=== PATIENT | female | born 1970 | race Caucasian/White ===

== ENCOUNTER 2018-02-23 08:32 | Outpatient (CLI) | payer BC | END 2018-02-23 08:33 | disposition home or self-care (01) | LOC: BICMAMMO 08:32 | PROVIDERS: ATTEND Obstetrics & Gynecology | DX: Z12.31 Encounter for screening mammogram for malignant neoplasm of breast (principal); Z80.3 Family history of malignant neoplasm of breast; R92.1 Mammographic calcification found on diagnostic imaging of breast | CPT/HCPCS: 77063; 77067 ==

== ENCOUNTER 2018-06-16 11:02 | Outpatient (CLI) | payer BC | END 2018-06-16 11:03 | disposition home or self-care (01) | LOC: DTY/OP 11:02 | PROVIDERS: ATTEND Surgery | DX: E11.9 Type 2 diabetes mellitus without complications (principal); I10 Essential (primary) hypertension | CPT/HCPCS: 97802 ==

== ENCOUNTER 2018-07-07 08:45 | Inpatient (IN) | payer BC ==
[2018-07-08] MEDS ORDERED: Bupivacaine/Epinephrine 0.25% 30 ML VIAL ONE (10:24)
[2018-07-08] MEDS ORDERED: Heparin 5,000 UNITS/ML VIAL ONE (10:50)
[2018-07-08] MEDS ORDERED: Midazolam HCl 2 mg/2 ml Vial ONE ×2 (10:50→11:09)
[2018-07-08] MEDS ORDERED: CEFAZOLIN/Water 2 GM/20 ML SYRINGE ONE (10:51)
[2018-07-08] MEDS ORDERED: Fentanyl 250 MCG/5 ML VIAL ONE (11:09)
[2018-07-08] MEDS ORDERED: Ondansetron HCl/PF 4 MG/2 ML Vial IVP PRN ×3 (12:26→16:14)
[2018-07-08] MEDS ORDERED: Promethazine HCl 25 MG/ML VIAL IM PRN ×3 (12:26→16:14)
[2018-07-08] MEDS ORDERED: Promethazine HCl 25 MG/ML VIAL SLOW IVP PRN (12:26)
--- NOTE | 2018-07-08 12:52 | OP ---
DATE OF PROCEDURE: 07/08/2018 PREOPERATIVE DIAGNOSES: Morbid obesity with a BMI of 36, diabetes mellitus type 2, hypertension. POSTOPERATIVE DIAGNOSES: Morbid obesity with a BMI of 36, diabetes mellitus type 2, hypertension. PROCEDURE: 1. Laparoscopic sleeve gastrectomy Onley staple line reinforcements and 38 Filipino bougie. 2. Laparoscopic paraesophageal hiatal hernia repair without fundoplication or mesh. SURGEON: Malachi Mann M.D. ANESTHESIA: General. ESTIMATED BLOOD LOSS: 50 mL. COMPLICATIONS: None. SPECIMEN: Stomach. FINDINGS: Hiatal hernia. TECHNIQUE: The patient was taken to the operating room and placed supine on the table. After genera l anesthetic was obtained, the arms and legs were double strapped to bariatric table. The abdomen is prepped and draped in a sterile fashion. Left subcostal 5-mm Optiview trocar was placed in the usua l fashion and high-flow pneumoperitoneum was obtained. Left and right abdominal 12-mm ports as well as a right subcostal 5 mm port were placed under direct visualization. Jammie retractor was broug ht in through a 5 mm incision made at the xiphoid and used to raise the liver off the GE junction. S hort gastric were taken down from a distance of 5 cm proximal to the pylorus all the way to the left paola and angle of His. The left paola, angle of His and fundus of the stomach is completely dissected . This revealed a small hiatal hernia. The gastrohepatic ligament is entered in the right paola of t he diaphragm found. Circumferential dissection of the esophagus was performed bringing the GE juncti on back into the abdominal cavity as well as the fundus of the stomach, 38 bougie was brought in, its tip left in the antrum of the stomach. Multiple loads of an [place] stapling device used to form th e sleeve, first it was fired up at a distance of 6 cm proximal to the pylorus angled up towards the i ncisura. Multiple loads then fired up along the bougie, stomach was completely transected at the ang le of His, 1 Ethibond suture and the tie knot system used to close the diaphragmatic defect posterior ly with the bougie in place. The bougie was then removed. The stomach was removed from left abdomin al incision. This fascial defect was closed using GraNee needle 0 Vicryl tie. EGD scope was passed into the esophagus, stomach to the level of the duodenum without stricture, no evidence of air leakag e through the staple line, no bleeding in the stomach. EGD scope was used to decompress the stomach, it was pulled and removed. All port sites were infiltrated using local anesthetic. The Nathansen r emoved under direct visualization without injury. All port sites were removed under direct visualiza tion without bleeding. Pneumoperitoneum was let down. Vicryl used for the facial defect from left a bdominal incisions. All incisions were irrigated and closed using 4-0 Monocryl and Dermabond. The p atient was en route to recovery in stable condition. All instrument counts, needle counts, lap count s were correct.
[2018-07-08] MEDS ORDERED: Fentanyl 100 MCG/2 ML VIAL ONE (13:27)
[2018-07-08] MEDS ORDERED: Ketorolac Tromethamine 30 MG/ML VIAL IVP PRN (13:40)
[2018-07-08] MEDS ORDERED: diphenhydrAMINE 50 MG/ML VIAL IVP PRN ×2 (13:40→16:14)
[2018-07-08] MEDS ORDERED: fentaNYL Citrate/PF 2,000 MCG in Sodium Chloride 0.9% 60 ML IV PRN (13:40)
[2018-07-08] MEDS ORDERED: diphenhydrAMINE 50 MG/ML VIAL IM PRN (13:40)
[2018-07-08] MEDS ORDERED: Naloxone HCl 0.4 mg/ml Vial IV PRN (13:40)
[2018-07-08] MEDS ORDERED: Zolpidem Tartrate 5 MG TAB PO PRN (13:40)
[2018-07-08] MEDS ORDERED: diphenhydrAMINE 25 MG CAP PO PRN (13:40)
[2018-07-08] MEDS ORDERED: Communication Order-Pharmacy FS SCH (13:45)
[2018-07-08] MEDS ORDERED: Ketorolac Tromethamine 30 MG/ML VIAL ONE (14:57)
[2018-07-08] MEDS ORDERED: PROPOFOL 200 MG/20 ML VIAL ONE (14:57)
[2018-07-08] MEDS ORDERED: Lidocaine 1% PF 5 ML VIAL ONE (14:57)
[2018-07-08] MEDS ORDERED: Dexamethasone 20 MG/5 ML VIAL ONE (14:57)
[2018-07-08] MEDS ORDERED: Glycopyrrolate 0.2 MG/ML 5 ML SYRINGE ONE (14:57)
[2018-07-08] MEDS ORDERED: Ondansetron HCl/PF 4 MG/2 ML Vial ONE (14:57)
[2018-07-08] MEDS ORDERED: PHENYLEPHRINE-NS 100 MCG/ML 10 ML SYRINGE ONE (14:57)
[2018-07-08] MEDS ORDERED: hydrALAZINE 20 MG/ML VIAL SLOW IVP PRN (16:14)
[2018-07-08] MEDS ORDERED: Dextrose 5% in Water 1,000 ML IV PRN (16:14)
[2018-07-08] MEDS ORDERED: Dextrose 50% Abboject 50 ML SYRINGE SLOW IVP PRN (16:14)
[2018-07-08 17:44] VITALS: BMI 35.6
[2018-07-08] MEDS: Acetaminophen 1,000 MG in Premix Bag 1 BAG IVPB SCH (18:27)
[2018-07-08] MEDS: 1/2 NS w/KCL 20 mEq 1,000 ML IV SCH (18:29)
[2018-07-08] MEDS: HumaLOG 300 UNITS/3 ML VIAL SC PRN ×2 (18:35→21:22)
[2018-07-08] MEDS ORDERED: Losartan 25 MG TAB PO SCH (21:00)
[2018-07-08] MEDS ORDERED: Enoxaparin Sodium 40 MG/0.4 ML SYRINGE SC SCH (21:00)
[2018-07-09] MEDS: Acetaminophen 1,000 MG in Premix Bag 1 BAG IVPB SCH ×2 (00:27→06:10)
[2018-07-09] MEDS: 1/2 NS w/KCL 20 mEq 1,000 ML IV SCH ×2 (00:27→11:41)
[2018-07-09 05:26] LABS: #Lymphocytes 2.1 thou/uL (1.20-3.40); #Monocytes 0.7 thou/uL (0.11-0.59); %Basophils 0.2 % (0.0-1.0); %Eosinophils 0.2 % (0.0-10.0); %Lymphocytes 19.3 % (21.0-51.0); %Monocytes 6.5 % (0.0-10.0); %Neutrophils 73.8 % (42.0-75.0); Hemoglobin 11.1 g/dL (12.0-16.0); Mean Corpuscular HGB CONC 34.9 g/dL (32.0-36.0); Mean Corpuscular Hemoglobin 31.1 pg (27.0-31.0); Mean Corpuscular Volume 89.3 fL (78.0-98.0); Mean Platelet Volume 8.9 fL (7.4-10.4); Platelet Count 212 thou/uL (130-400); RBC Distribution Width 12.2 % (11.5-14.5); Red Blood Cell (RBC) Count 3.57 mill/uL (4.20-5.40); White Blood Cell (WBC) Count 10.9 thou/uL (4.8-10.8)
[2018-07-09 05:27] VITALS: TEMP 98.6
[2018-07-09 05:48] LABS: Anion Gap 14 mmol/L (10-20); BUN (Urea Nitrogen) 18 mg/dL (7.0-18.7); Calc. Creatinine Clearance 90 mL/min (70-130); Calcium 8.7 mg/dL (7.8-10.44); Carbon Dioxide 21 mmol/L (22-29); Chloride 107 mmol/L (98-107); Estimated GFR-MDRD 55; Glucose 127 mg/dL (70-105); Potassium 4.5 mmol/L (3.5-5.1); Sodium 137 mmol/L (136-145)
[2018-07-09] MEDS ORDERED: Hydrocodone-Acetamin 15 ML UDCUP PO PRN (08:00)
[2018-07-09] MEDS ORDERED: Pantoprazole 40 MG VIAL IVP SCH (09:00)
[2018-07-09 12:30] VITALS: BP 152/83
== END 2018-07-09 13:20 | disposition home or self-care (01) | DRG 621 ==
LOC: SURG A 07-08 09:53 → SJJU 07-08 14:44
PROVIDERS: ADMIT Surgery; ATTEND Surgery
PROC: 0DB64Z3 Excision of Stomach, Percutaneous Endoscopic Approach, Vertical (ICD-10-PCS; principal; 2018-07-08)
PROC: 0BQT4ZZ Repair Diaphragm, Percutaneous Endoscopic Approach (ICD-10-PCS; 2018-07-08)
DX: E66.01 Morbid (severe) obesity due to excess calories (principal); Z68.36 Body mass index [BMI] 36.0-36.9, adult; I10 Essential (primary) hypertension; K76.0 Fatty (change of) liver, not elsewhere classified; Z90.5 Acquired absence of kidney; E11.9 Type 2 diabetes mellitus without complications; K44.9 Diaphragmatic hernia without obstruction or gangrene
CPT/HCPCS: 36415; 36416; 80048; 85025; 88307; 88312; C9113; J0131; J1100; J1644; J1650; J1885; J2001; J2250; J2405; J2704; J3010; J7050

== ENCOUNTER 2018-07-07 09:00 | Outpatient (CLI) | payer BC ==
[2018-07-07 10:40] LABS: #Eosinphils 0.2 thou/uL (0.0-0.7); #Lymphocytes 2.7 thou/uL (1.20-3.40); #Monocytes 0.5 thou/uL (0.11-0.59); #Neutrophils 4.5 thou/uL (1.40-6.50); %Basophils 0.5 % (0.0-1.0); %Eosinophils 2.1 % (0.0-10.0); %Lymphocytes 34.1 % (21.0-51.0); %Monocytes 6.3 % (0.0-10.0); %Neutrophils 57.1 % (42.0-75.0); Hemoglobin 13.6 g/dL (12.0-16.0); Mean Corpuscular HGB CONC 34.6 g/dL (32.0-36.0); Mean Corpuscular Hemoglobin 30.6 pg (27.0-31.0); Mean Corpuscular Volume 88.4 fL (78.0-98.0); Mean Platelet Volume 9.1 fL (7.4-10.4); Platelet Count 234 thou/uL (130-400); RBC Distribution Width 12.3 % (11.5-14.5); Red Blood Cell (RBC) Count 4.46 mill/uL (4.20-5.40); White Blood Cell (WBC) Count 7.9 thou/uL (4.8-10.8)
[2018-07-07 10:45] LABS: Hemoglobin A1c 8.3 % (4.0-6.0)
[2018-07-07 10:51] LABS: BHCG - Serum Negative (NEGATIVE); Pregs Control Background? CLEAR/WHITE (CLR/WHITE); Pregs Control Bar Appear? YES (CONTROL BAR)
[2018-07-07 11:02] LABS: ALT (SGPT) 41 U/L (8-55); AST (SGOT) 32 U/L (5-34); Albumin 4.8 g/dL (3.5-5.0); Alkaline Phosphatase 86 U/L (40-150); Anion Gap 18 mmol/L (10-20); BUN (Urea Nitrogen) 26 mg/dL (7.0-18.7); Bilirubin, Direct 0.2 mg/dL (0.1-0.3); Bilirubin, Total 0.6 mg/dL (0.2-1.2); Calc. Creatinine Clearance 0 mL/min (70-130); Calcium 10.4 mg/dL (7.8-10.44); Carbon Dioxide 17 mmol/L (22-29); Chloride 106 mmol/L (98-107); Estimated GFR-MDRD 57; Globulin 3.1 g/dL (2.4-3.5); Glucose 185 mg/dL (70-105); Potassium 4.9 mmol/L (3.5-5.1); Protein, Total 7.9 g/dL (6.0-8.3); Sodium 136 mmol/L (136-145)
--- NOTE | 2018-07-07 11:07 | RAD ---
TWO VIEW CHEST: HISTORY: Preop evaluation. COMPARISON: No comparison. FINDINGS: There is elevation of the left hemidiaphragm with mild blunting of the left CP angle. The lungs are clear. Heart and mediastinum appear unremarkable. Osseous structures unremarkable wit h mild degenerative changes noted in the spine. IMPRESSION: Elevation of left hemidiaphragm. Consider diaphragm paralysis. Chest is otherwise unremarkable. POS: H
--- NOTE | 2018-07-07 12:21 | EKG ---
Test Reason : Blood Pressure : / mmHG Vent. Rate : 073 BPM Atrial Rate : 073 BPM P-R Int : 118 ms QRS Dur : 086 ms QT Int : 370 ms P-R-T Axes : 040 054 012 degrees QTc Int : 407 ms Normal sinus rhythm Normal ECG No previous ECGs available Confirmed by JASPAL IBANEZ ([id number]) on 07/07/2018 12:20:57 PM Referred By: DUSTIN Confirmed By:JASPAL IBANEZ
== END 2018-07-07 09:01 | disposition home or self-care (01) ==
LOC: LABBT 09:00
PROVIDERS: ATTEND Surgery
DX: Z01.818 Encounter for other preprocedural examination (principal); E66.01 Morbid (severe) obesity due to excess calories; J98.6 Disorders of diaphragm
CPT/HCPCS: 71046; 80053; 80076; 83036; 84703; 85025; 93005; 93010

== ENCOUNTER 2018-07-14 14:50 | Observation (INO) | payer BC ==
[~2018-07-14 14:50] MED LIST: Iopamidol 370 76% 100 ML VIAL ONE
[2018-07-14] MEDS ORDERED: Thiamine HCl 200 MG/2 ML VIAL ONE (15:33)
[2018-07-14] MEDS ORDERED: Multivit, Adult Inj 10 ML VIAL ONE (15:33)
[2018-07-14] MEDS ORDERED: Lorazepam 2 MG/ML VIAL ONE (15:33)
[2018-07-14 15:40] LABS: #Basophils 0.1 thou/uL (0.0-0.2); #Eosinphils 0.1 thou/uL (0.0-0.7); #Lymphocytes 2.7 thou/uL (1.20-3.40); #Neutrophils 10.3 thou/uL (1.40-6.50); %Basophils 0.8 % (0.0-1.0); %Lymphocytes 18.6 % (21.0-51.0); %Monocytes 6.9 % (0.0-10.0); %Neutrophils 72.7 % (42.0-75.0); Hemoglobin 11.9 g/dL (12.0-16.0); Mean Corpuscular HGB CONC 34.4 g/dL (32.0-36.0); Mean Corpuscular Volume 84.4 fL (78.0-98.0); Mean Platelet Volume 9.8 fL (7.4-10.4); Platelet Count 260 thou/uL (130-400); RBC Distribution Width 11.7 % (11.5-14.5); Red Blood Cell (RBC) Count 4.11 mill/uL (4.20-5.40); White Blood Cell (WBC) Count 14.2 thou/uL (4.8-10.8)
[2018-07-14 15:55] LABS: ALT (SGPT) 36 U/L (8-55); AST (SGOT) 24 U/L (5-34); Albumin 4.3 g/dL (3.5-5.0); Alkaline Phosphatase 98 U/L (40-150); Anion Gap 19 mmol/L (10-20); BUN (Urea Nitrogen) 26 mg/dL (7.0-18.7); Calc. Creatinine Clearance 0 mL/min (70-130); Calcium 10.3 mg/dL (7.8-10.44); Carbon Dioxide 16 mmol/L (22-29); Chloride 108 mmol/L (98-107); Estimated GFR-MDRD 31; Globulin 3.5 g/dL (2.4-3.5); Glucose 142 mg/dL (70-105); Lipase 40 U/L (8-78); Protein, Total 7.8 g/dL (6.0-8.3); Sodium 139 mmol/L (136-145)
--- NOTE | 2018-07-14 17:32 | CT ---
CT ANGIOGRAM OF CHEST WITH CONTRAST: Date: 07/14/18 HISTORY: Dyspnea. Pain. Recent surgery. COMPARISON: Abdomen and chest radiograph dated 07/07/18. FINDINGS: CT angiogram of the chest performed after the intravenous administration of contrast. 3D rendering pr ovided. No proximal segmental pulmonary arterial filling defect. Heart size normal. No pericardial effusion. Likely small reactive mediastinal lymph nodes. Chronic elevation left hemidiaphragm. Small volume perisplenic fluid, likely postsurgical in nature. Mild atelectasis both lung bases. No focal air space consolidation, pneumothorax, or effusion. No kimberly picious pulmonary nodule. No suspicious osseous abnormality. IMPRESSION: 1. No acute intrathoracic abnormality. No proximal segmental pulmonary arterial filling defect. 2. Chronic elevation left hemidiaphragm. POS: SU
[2018-07-14 17:51] LABS: Bilirubin Negative (Negative); Blood, Urine Trace (Negative); Clarity Cloudy (Clear); Glucose, Urine (Dipstick) Negative (Negative); Leukocyte Small (Negative); Nitrite Negative (Negative); Protein, Urine (Dipstick) 30 mg/dL (Neg-Trace); Urobilinogen 0.2 mg/dL (0.2-1.0)
--- NOTE | 2018-07-14 17:51 | CT ---
ABDOMEN CT WITH CONTRAST PELVIC CT WITH CONTRAST 07/14/18 HISTORY: Fever. Pain. Recent gastric sleeve. COMPARISON: None. TECHNIQUE: Abdomen and pelvic CT performed in the axial plane. Coronal reformatted images are submitted. FINDINGS: Opacities in the lung bases. Refer to CT angio chest for further detail. Normal heart size. Descendin g thoracic aorta and abdominal aorta have a normal caliber. No periaortic fat stranding. Gallbladder is unremarkable. Patent portal vein. Hypoattenuation of the liver due to hepatic steatosi s. Spleen, pancreas, adrenal glands are unremarkable. Right kidney demonstrates striated nephrogram p hase. Correlate for pyelonephritis. 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 There is a small amount of fluid in the left upper quadrant likely postoperative. An enhancing fluid collection, compatible with abscess is not appreciated. There is no mesenteric mass, lymphadenopathy or free air. Gastric mucosal is grossly unremarkable. Contrast opacifies the gastric remnant. No evidence of gastr ic outlet obstruction. Multiple normal caliber small bowel loops. Ileocecal junction is normal. Belkys l caliber appendix. A small amount of nonspecific fluid near the cecal apex. Colon is otherwise unrem arkable. PELVIC CT: Uterus is unremarkable. note is made of an intrauterine device. Hypodensities in the right adnexa lik erasto due to right ovarian cyst/slightly complex measuring 2.5 cm. Trace amount of free fluid in the pe lvis. No mass, lymphadenopathy or free air. Bilateral pars defects are identified in the lower lumbar spine. Mild elevation of the left hemidiaphragm is noted and may be due to atelectasis. IMPRESSION: 1. Postoperative changes compatible with recent bariatric surgery. There is fluid in the left up per quadrant likely postoperative. No evidence of abscess. 2. Oral contrast opacifies the gastric remnant. No evidence of obvious leak or extravasation. 3. Striated nephrogram phase of the right kidney. Correlate clinically for pyelonephritis. POS: SU
[2018-07-14 17:52] LABS: Specific Gravity, Urine 1.033 (1.002-1.036)
[2018-07-14 17:54] LABS: Bacteria/HPF 2+ HPF (None Seen); Other Casts/LPF 0-3 COARSE GRAN LPF (0-3 Hyaline)
[2018-07-14] MEDS ORDERED: Sodium Chloride 0.9% 100 ML ONE (17:59)
[2018-07-14] MEDS ORDERED: cefTRIAXone\\ROCEPHIN 2 GM VIAL ONE (17:59)
[2018-07-14] MEDS ORDERED: Morphine 4 MG/ML VIAL SLOW IVP PRN (21:09)
[2018-07-14] MEDS ORDERED: Ondansetron HCl/PF 4 MG/2 ML Vial IVP PRN (21:09)
[2018-07-14] MEDS ORDERED: diphenhydrAMINE 50 MG/ML VIAL IVP PRN (21:09)
[2018-07-14] MEDS ORDERED: Dextrose 50% Abboject 50 ML SYRINGE SLOW IVP PRN (21:09)
[2018-07-14] MEDS ORDERED: hydrALAZINE 20 MG/ML VIAL SLOW IVP PRN (21:09)
[2018-07-14] MEDS ORDERED: Hydrocodone-Acetamin 15 ML UDCUP PO PRN (21:09)
[2018-07-14] MEDS ORDERED: HumaLOG 300 UNITS/3 ML VIAL SC PRN (21:09)
[2018-07-14] MEDS ORDERED: Promethazine HCl 25 MG/ML VIAL IM PRN (21:09)
[2018-07-14] MEDS ORDERED: Dextrose 5% in Water 1,000 ML IV PRN (21:09)
[2018-07-14] MEDS ORDERED: Sodium Chloride 0.9% 1,000 ML IV SCH (21:09)
[2018-07-14 21:23] VITALS: BMI 34.9
[2018-07-14] MEDS ORDERED: Enoxaparin Sodium 40 MG/0.4 ML SYRINGE SC SCH (21:30)
[2018-07-14] MEDS ORDERED: Losartan 25 MG TAB PO SCH (21:30)
[2018-07-14] MEDS ORDERED: Acetaminophen 650 MG/20.3 ML UDCUP PO PRN (21:32)
[2018-07-14] MEDS: Sodium Chloride 0.9% 1,000 ML IV SCH (21:46)
[2018-07-14] MEDS ORDERED: cefTRIAXone\\ROCEPHIN 1 GM in Sodium Chloride 0.9% 100 ML IVPB SCH (22:00)
[2018-07-15 04:22] LABS: #Basophils 0.1 thou/uL (0.0-0.2); #Eosinphils 0.2 thou/uL (0.0-0.7); #Lymphocytes 2.7 thou/uL (1.20-3.40); #Monocytes 0.7 thou/uL (0.11-0.59); #Neutrophils 6.3 thou/uL (1.40-6.50); %Basophils 0.6 % (0.0-1.0); %Eosinophils 1.8 % (0.0-10.0); %Lymphocytes 26.9 % (21.0-51.0); %Monocytes 7.3 % (0.0-10.0); %Neutrophils 63.4 % (42.0-75.0); Hemoglobin 10.5 g/dL (12.0-16.0); Mean Corpuscular HGB CONC 34.7 g/dL (32.0-36.0); Mean Corpuscular Volume 89.4 fL (78.0-98.0); Mean Platelet Volume 9.5 fL (7.4-10.4); Platelet Count 228 thou/uL (130-400); RBC Distribution Width 12.3 % (11.5-14.5); Red Blood Cell (RBC) Count 3.37 mill/uL (4.20-5.40); White Blood Cell (WBC) Count 9.9 thou/uL (4.8-10.8)
[2018-07-15 04:41] LABS: Anion Gap 13 mmol/L (10-20); BUN (Urea Nitrogen) 22 mg/dL (7.0-18.7); Calc. Creatinine Clearance 64 mL/min (70-130); Calcium 8.5 mg/dL (7.8-10.44); Carbon Dioxide 20 mmol/L (22-29); Chloride 109 mmol/L (98-107); Estimated GFR-MDRD 38; Glucose 144 mg/dL (70-105); Potassium 3.6 mmol/L (3.5-5.1); Sodium 138 mmol/L (136-145)
[2018-07-15] MEDS: Sodium Chloride 0.9% 1,000 ML IV SCH ×3 (05:42→20:22)
[2018-07-15] MEDS: Pantoprazole 40 MG VIAL IVP SCH (08:05)
--- NOTE | 2018-07-15 10:03 | HP ---
CHIEF COMPLAINT: Dyspnea, right-sided abdominal pain and back pain. HISTORY OF PRESENT ILLNESS: This is a 48-year-old female who is 1 week status post gastric sleeve, w ho presents after readmission to observation overnight. She started complaining of shortness of issa th, pain in her right upper side and back. She does have a large hematoma in her right-sided incisio n. She has no nausea, no vomiting, no reflux symptoms. She has tolerated the clear liquids without difficulty. She was seen last night in the emergency room where CT scan of the chest revealed no PE. CT of the abdomen with oral contrast revealed no leak and been admitted to my service for observati on and presumed urinary tract infection versus pyelonephritis. This morning, she feels better. Her shortness of breath is improved. She is still having right-sided back pain. PAST MEDICAL HISTORY: See previous H&P. PAST SURGICAL HISTORY: See previous H&P. SOCIAL HISTORY: See previous H&P. MEDICINES: See previous H&P. PHYSICAL EXAMINATION: VITAL SIGNS: Blood pressure 136/84, pulse 79, respirations 18. She is afebrile. CHEST: Clear. HEART: Regular rate and rhythm. ABDOMEN: Soft. She has some ecchymoses around her right-sided incision. No guarding or rebound. LABORATORY DATA AND X-RAY FINDINGS: White blood cell count this morning is 9, hemoglobin 10, platele t count is 228. Sodium 138, potassium 3.6, creatinine 1.48 that is down from 1.75 last night. Gluco se 144. CT scan is reviewed. There is some inflammatory change around the right kidney on the CT. ASSESSMENT: Postop right flank and back pain associated with dyspnea. No PE, no leak, could be pyel onephritis. PLAN: Continue observation, IV antibiotics, likely ready to discharge home tomorrow.
[2018-07-15] MEDS ORDERED: cefTRIAXone\\ROCEPHIN 1 GM in Sodium Chloride 0.9% 100 ML IVPB SCH (18:00)
[2018-07-15] MEDS ORDERED: Enoxaparin Sodium 40 MG/0.4 ML SYRINGE SC SCH (21:00)
[2018-07-15] MEDS ORDERED: Losartan 25 MG TAB PO SCH (21:00)
[2018-07-16 05:27] LABS: Anion Gap 13 mmol/L (10-20); BUN (Urea Nitrogen) 12 mg/dL (7.0-18.7); Calc. Creatinine Clearance 102 mL/min (70-130); Calcium 7.9 mg/dL (7.8-10.44); Carbon Dioxide 17 mmol/L (22-29); Chloride 114 mmol/L (98-107); Estimated GFR-MDRD 65; Glucose 128 mg/dL (70-105); Potassium 3.7 mmol/L (3.5-5.1); Sodium 140 mmol/L (136-145)
[2018-07-16 07:48] VITALS: BP 124/79
[2018-07-16] MEDS: Pantoprazole 40 MG VIAL IVP SCH (08:37)
[2018-07-16 11:48] VITALS: TEMP 99
[2018-07-16] MEDS: Sodium Chloride 0.9% 1,000 ML IV SCH (11:49)
--- NOTE | 2018-07-16 14:11 | DIS ---
DATE OF ADMISSION: 07/14/2018 DATE OF DISCHARGE: 07/16/2018 ADMITING DIAGNOSES: 1. Dehydration, status post gastric sleeve 2. History of chronic renal insufficiency. PROCEDURES: None. CONDITION AT DISCHARGE: Improved. STAFF: Dr. Malachi Mann. HOSPITAL COURSE: The patient was admitted with minor elevation of her creatinine. She was found to have urine with WBCs and bacteria, some mild stranding around her single kidney, admitted with presum ed dehydration and pyelonephritis. Pain is much improved today. She is placed on Levaquin IV. We w ill switch that to oral Levaquin on discharge. She will follow up with me in my office next week.
== END 2018-07-16 14:59 | disposition home or self-care (01) ==
LOC: SCSER 14:50 → T4-A 21:08
PROVIDERS: ADMIT Surgery; ATTEND Surgery
DX: E86.0 Dehydration (principal); L76.32 Postprocedural hematoma of skin and subcutaneous tissue following other procedure; I12.9 Hypertensive chronic kidney disease with stage 1 through stage 4 chronic kidney disease, or unspecified chronic kidney disease; E11.22 Type 2 diabetes mellitus with diabetic chronic kidney disease; N18.9 Chronic kidney disease, unspecified; N17.9 Acute kidney failure, unspecified; N39.0 Urinary tract infection, site not specified; Z98.84 Bariatric surgery status; Z79.84 Long term (current) use of oral hypoglycemic drugs; Z79.899 Other long term (current) drug therapy; Z91.018 Allergy to other foods; Z90.5 Acquired absence of kidney
CPT/HCPCS: 36415; 36416; 71275; 74177; 80048; 80053; 81003; 81015; 83690; 85025; 87040; 87086; 90471; 90732; 96361; 96365; 96366; 96367; 96368; 96372; 96375; 96376; A4216; C9113; G0009; G0378; J0696; J1650; J1956; J2060; J3411; J7050

== ENCOUNTER 2018-11-04 21:10 | Emergency (ER) | payer BC ==
[2018-11-04] MEDS ORDERED: Famotidine/PF 20 mg/2ml Vial ONE (21:45)
[2018-11-04] MEDS ORDERED: Ondansetron PF 4 MG/2 ML Vial ONE ×2 (21:45→23:57)
[2018-11-04 23:19] LABS: Carbon Dioxide 22 mmol/L (22-29); Chloride 101 mmol/L (98-107); Potassium 4.1 mmol/L (3.5-5.1); Sodium 139 mmol/L (136-145)
[2018-11-04 23:20] LABS: Alkaline Phosphatase 173 U/L (40-150); Anion Gap 20 mmol/L (10-20); BUN (Urea Nitrogen) 16 mg/dL (7.0-18.7); Calc. Creatinine Clearance 0 mL/min (70-130); Calcium 10.5 mg/dL (7.8-10.44); Estimated GFR-MDRD 58; Globulin 3.9 g/dL (2.4-3.5); Glucose 177 mg/dL (70-105); Protein, Total 8.9 g/dL (6.0-8.3)
[2018-11-04 23:21] LABS: ALT (SGPT) 254 U/L (8-55); AST (SGOT) 536 U/L (5-34); Lipase 35 U/L (8-78); Mean Corpuscular HGB CONC 32.5 g/dL (32.0-36.0); Mean Corpuscular Hemoglobin 27.9 pg (27.0-31.0); Mean Corpuscular Volume 85.6 fL (78.0-98.0); Red Blood Cell (RBC) Count 5.38 mill/uL (4.20-5.40); White Blood Cell (WBC) Count 15.2 thou/uL (4.8-10.8)
[2018-11-04 23:22] LABS: #Basophils 0.1 thou/uL (0.0-0.2); #Eosinphils 0.1 thou/uL (0.0-0.7); #Lymphocytes 1.4 thou/uL (1.20-3.40); #Monocytes 0.7 thou/uL (0.11-0.59); #Neutrophils 12.9 thou/uL (1.40-6.50); %Basophils 0.8 % (0.0-1.0); %Eosinophils 0.5 % (0.0-10.0); %Lymphocytes 9.2 % (21.0-51.0); %Monocytes 4.7 % (0.0-10.0); %Neutrophils 84.8 % (42.0-75.0); Mean Platelet Volume 9.5 fL (7.4-10.4); Platelet Count 184 thou/uL (130-400); RBC Distribution Width 12.7 % (11.5-14.5)
[2018-11-04] MEDS ORDERED: Morphine 4 MG/ML VIAL ONE (23:52)
[2018-11-05] MEDS ORDERED: Metoclopramide HCl 10 MG/2 ML VIAL ONE (02:22)
--- NOTE | 2018-11-05 07:29 | CT ---
ABDOMEN AND PELVIC CT SCAN WITH IV CONTRAST: Date: 11/04/18 HISTORY: 48-year-old female with history of abdominal pain, history of gastric sleeve. COMPARISON: 07/14/18. FINDINGS: Left hemidiaphragm elevation. Postop changes of the stomach. Slight irregularity to the wall of the g allbladder. This could conceivably represent small gallstone. Pancreas appears unremarkable. Status p ost left nephrectomy. Somewhat enlarged right kidney. IUD in place within the uterus. Small right lorenzo al cyst. No CT evidence for acute appendicitis. IMPRESSION: Left hemidiaphragm elevation. Status post left nephrectomy. Postop changes involving the stomach. Pos sible small gallstone. Enlarged right kidney. Small right ovarian cyst. Postop changes of the lower l umbar spine. No evidence for other significant new process. POS: SU
--- NOTE | 2018-11-05 08:25 | ULT ---
PRELIMINARY REPORT/[facility]/EMERGENTY AFTER-HOURS PROCEDURE US Abdomen Limited, Right Upper Quadrant EXAM DATE/TIME: 11/05/2018 12:46 AM CLINICAL HISTORY: 48 years old, female; Pain and signs and symptoms; Nausea and vomiting; Abdominal pain; Epigastric; P rior surgery; Surgery date: 1-6 months; Surgery type: Bariatric sleeve 07/09/18; Patient HX: Epigastri c burning pain, n/v TECHNIQUE: Real-time ultrasound of the abdomen with image documentation. Examination was focused on the right up per quadrant. COMPARISON: No relevant prior studies available. FINDINGS: Liver: Echogenic/fatty. No acute findings. No mass. Gallbladder: The gallbladder is somewhat contracted. No definite gallstones. Common bile duct: Unremarkable. Pancreas: Limited visualization due to bowel gas. Possible small peripancreatic fluid. Right kidney: No acute findings. No mass. No hydronephrosis. IMPRESSION: Possible small peripancreatic fluid. Further evaluation can be performed with CT. Thank you for allowing us to participate in the care of your patient. Dictated and Authenticated by: Enoch Silva MD 11/05/2018 1:44 AM Central Time ([place] & [place]) FINAL REPORT RIGHT UPPER QUADRANT ULTRASOUND: I agree with the preliminary report given by Dr. Silva of [place]. POS: [facility]
[2018-11-05 10:54] LABS: HBSAB Concentration 1.35 mIU/mL; HBSAg Index 0.19 S/CO (0-0.99); Hep B Surf AB Non-Reactive (NonReactive); Hep B Surf Ag Non-Reactive S/CO (NonReactive)
[2018-11-05 10:55] LABS: Hep C IgG Ab Non-Reactive (NonReactive); Hep C Index 0.03 S/CO (0-0.79)
[2018-11-05 10:56] LABS: Hep A IgM AB Non-Reactive (NonReactive); Hep A IgM S/CO 0.11 S/CO (0-0.79)
[2018-11-05 10:58] LABS: HBCM Index 0.05 S/CO (0-0.79); Hepatitis B Core IgM Abs Non-Reactive (NonReactive)
[2018-11-09 15:24] LABS: Hepatitis C RNA-PCR Negative (Negative)
== END 2018-11-05 03:10 | disposition home or self-care (01) ==
LOC: SCSER 21:10
DX: R10.13 Epigastric pain (principal); I10 Essential (primary) hypertension; R74.0 Nonspecific elevation of levels of transaminase and lactic acid dehydrogenase [LDH]; E11.9 Type 2 diabetes mellitus without complications
CPT/HCPCS: 74177; 76705; 80053; 82977; 83690; 85025; 86705; 86706; 86709; 86803; 87340; 87521; 93005; 96365; 96366; 96367; 96375; 96376; J2270; J2405; J2765; S0028

== ENCOUNTER 2019-02-24 09:16 | Outpatient (CLI) | payer BC ==
--- NOTE | 2019-02-24 09:49 | MMO ---
Bilateral MAMMO Bilat Screen [facility]. CLINICAL HISTORY: Patient is 48 years old and is seen for screening. The patient has the following family history of breast cancer: sister, at age 36. The patient has no personal history of cancer. VIEWS: The views performed were: bilateral craniocaudal with tomosynthesis; bilateral mediolateral oblique with tomosynthesis; and left exaggerated craniocaudal. FILMS COMPARED: The present examination has been compared to prior imaging studies performed at on 02/20/2016, 02/20/2017 and 02/23/2018. MAMMOGRAM FINDINGS: There are scattered fibroglandular densities. There are no suspicious masses, suspicious calcifications, or new areas of architectural distortion. IMPRESSION: THERE IS NO MAMMOGRAPHIC EVIDENCE OF MALIGNANCY. A ROUTINE FOLLOW-UP MAMMOGRAM IN 1 YEAR IS RECOMMENDED. THE RESULTS OF THIS EXAM WERE SENT TO THE PATIENT. ACR BI-RADS Category 1 - Negative MAMMOGRAPHY NOTE: 1. A negative mammogram report should not delay a biopsy if a dominant of clinically suspicious mass is present. 2. Approximately 10% to 15% of breast cancers are not detected by mammography. 3. Adenosis and dense breasts may obscure an underlying neoplasm.
== END 2019-02-24 09:17 | disposition home or self-care (01) ==
LOC: BICMAMMO 09:16
PROVIDERS: ATTEND Obstetrics & Gynecology
DX: Z12.31 Encounter for screening mammogram for malignant neoplasm of breast (principal); Z80.3 Family history of malignant neoplasm of breast
CPT/HCPCS: 77063; 77067

== ENCOUNTER 2019-07-04 08:16 | Outpatient (CLI) | payer BC ==
--- NOTE | 2019-07-04 10:16 | MRI ---
MRI BRAIN WITHOUT CONTRAST: HISTORY: Memory loss, unknown cause, moderate episode of recurrent major depressive disorder. FINDINGS: No restricted diffusion is seen. No evidence of infarct, hemorrhage, midline shift, or abnormal extr aaxial fluid collections is noted. The ventricular size is normal and the basilar cisterns patent. No significant signal abnormalities are seen on the highly sensitive FLAIR images. The visualized pa ranasal sinuses and mastoid air cells are well aerated. IMPRESSION: Unremarkable exam POS: [facility]
== END 2019-07-04 08:17 | disposition home or self-care (01) ==
LOC: BICMRI 08:16
PROVIDERS: ATTEND Family Medicine
DX: F33.1 Major depressive disorder, recurrent, moderate (principal); R41.3 Other amnesia; H90.3 Sensorineural hearing loss, bilateral
CPT/HCPCS: 70551

== ENCOUNTER 2020-06-18 08:20 | Outpatient (CLI) | payer BC ==
--- NOTE | 2020-06-18 08:53 | MMO ---
Bilateral MAMMO Bilat Screen [facility]. CLINICAL HISTORY: Patient is 50 years old and is seen for screening. The patient has the following family history of breast cancer: sister, at age 36. The patient has no personal history of cancer. VIEWS: The views performed were: bilateral craniocaudal with tomosynthesis and bilateral mediolateral oblique with tomosynthesis. FILMS COMPARED: The present examination has been compared to prior imaging studies performed at [facility] on 02/20/2016, 02/20/2017, 02/23/2018 and 02/24/2019. This study has been interpreted with the assistance of computer-aided detection. MAMMOGRAM FINDINGS: There are scattered fibroglandular densities. There are no suspicious masses, suspicious calcifications, or new areas of architectural distortion. IMPRESSION: THERE IS NO MAMMOGRAPHIC EVIDENCE OF MALIGNANCY. A ROUTINE FOLLOW-UP MAMMOGRAM IN 1 YEAR IS RECOMMENDED. THE RESULTS OF THIS EXAM WERE SENT TO THE PATIENT. ACR BI-RADS Category 1 - Negative MAMMOGRAPHY NOTE: 1. A negative mammogram report should not delay a biopsy if a dominant of clinically suspicious mass is present. 2. Approximately 10% to 15% of breast cancers are not detected by mammography. 3. Adenosis and dense breasts may obscure an underlying neoplasm. Reported by: AAMIR CARABALLO MD Electonically Signed: [id number]
== END 2020-06-18 08:21 | disposition home or self-care (01) ==
LOC: BICMAMMO 08:20
PROVIDERS: ATTEND Family Medicine
DX: Z12.31 Encounter for screening mammogram for malignant neoplasm of breast (principal); Z80.3 Family history of malignant neoplasm of breast
CPT/HCPCS: 77063; 77067

== ENCOUNTER 2023-07-06 08:32 | Outpatient (CLI) | payer BC | END 2023-07-06 08:33 | disposition home or self-care (01) | LOC: BICMRI 08:32 | PROVIDERS: ATTEND Neurological Surgery | DX: M43.16 Spondylolisthesis, lumbar region (principal); R29.2 Abnormal reflex; M43.17 Spondylolisthesis, lumbosacral region; M47.816 Spondylosis without myelopathy or radiculopathy, lumbar region; M51.36 Other intervertebral disc degeneration, lumbar region; M47.812 Spondylosis without myelopathy or radiculopathy, cervical region; M48.02 Spinal stenosis, cervical region; M50.30 Other cervical disc degeneration, unspecified cervical region | CPT/HCPCS: 72120; 72141 ==

== ENCOUNTER 2023-08-03 07:33 | Outpatient (CLI) | payer BC | END 2023-08-03 07:34 | disposition home or self-care (01) | LOC: SCSMRI 07:33 | PROVIDERS: ATTEND Neurological Surgery | DX: M53.3 Sacrococcygeal disorders, not elsewhere classified (principal); M43.17 Spondylolisthesis, lumbosacral region; M48.07 Spinal stenosis, lumbosacral region | CPT/HCPCS: 72197 ==

== ENCOUNTER 2025-07-10 14:37 | Outpatient (CLI) | payer BC | END 2025-07-10 14:38 | disposition home or self-care (01) | LOC: BICRAD 14:37 | PROVIDERS: ATTEND Chiropractor | DX: M25.512 Pain in left shoulder (principal); M79.645 Pain in left finger(s) ==

== ENCOUNTER 2025-09-07 09:36 | Outpatient (CLI) | payer BC | END 2025-09-07 09:37 | disposition home or self-care (01) | LOC: SCSMRI 09:36 | PROVIDERS: ATTEND Chiropractor | DX: M50.20 Other cervical disc displacement, unspecified cervical region (principal); M47.812 Spondylosis without myelopathy or radiculopathy, cervical region; M50.30 Other cervical disc degeneration, unspecified cervical region; M47.813 Spondylosis without myelopathy or radiculopathy, cervicothoracic region; M48.02 Spinal stenosis, cervical region; M50.221 Other cervical disc displacement at C4-C5 level | CPT/HCPCS: 72141 ==